=== PATIENT | male | born 1975 | race African-American/Black ===

== ENCOUNTER 2024-02-06 20:26 | Emergency (ER) | payer OTHER, MEDICAID, SELFPAY ==
[2024-02-06 20:31] VITALS: BP 140/89; PULSE 80; TEMP 36.5; O2SAT 97; BMI 33.9
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
[2024-02-06] MEDS: HYDROMORPHONE HCL 1 MG/ML CARTRIDGE IV (21:27)
[2024-02-06 21:51] VITALS: O2SAT 95
[2024-02-06 22:34] VITALS: PULSE 77; O2SAT 96
== END 2024-02-06 23:27 | disposition short-term general hospital (02) ==
PROVIDERS: Emergency Provider Student in an Organized Health Care Education/Training Program; PCP Nurse Practitioner
DX: R52 Pain, unspecified (principal)
CPT/HCPCS: 96374; 99285; J1170